=== PATIENT | male | born 1965 | race Caucasian/White ===

== ENCOUNTER 2024-06-29 09:26 | Emergency (ER) | payer OTHER, SELFPAY ==
[2024-06-29 09:32] VITALS: BP 117/107; PULSE 99; RESP 18; TEMP 36.7; O2SAT 97; BMI 27.3
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
== END 2024-06-29 11:56 | disposition home or self-care (01) ==
PROVIDERS: Emergency Provider Physician Assistant; Family Provider Orthopaedic Surgery; PCP Orthopaedic Surgery
DX: S70.02XA Contusion of left hip, initial encounter (principal); M54.32 Sciatica, left side; Y04.2XXA Assault by strike against or bumped into by another person, initial encounter
CPT/HCPCS: 73502; 99283